=== PATIENT | female | born 1975 | race Caucasian/White ===

== ENCOUNTER 2018-04-09 07:10 | Day surgery (SDC) | payer OTHER ==
[2018-04-09 09:39] LABS: ADD MAN DIFF? NO
[2018-04-09 09:43] LABS: WHITE BLOOD COUNT 9.5 10^3/ul (4.8-10.8)
[2018-04-09 09:43] LABS: BASOPHIL # 0.1 10^3/ul (0.0-0.1); BASOPHILS % 0.8 % (0.0-2.0); EOSINOPHILS # 0.1 10^3/ul (0.0-0.5); EOSINOPHILS % 1.3 % (0.0-7.0); HEMATOCRIT 35.3 % (37.0-47.0); HEMOGLOBIN 11.7 g/dl (12.0-16.0); LYMPHOCYTES # 2.2 10^3/ul (0.8-2.9); LYMPHOCYTES % 23.1 % (15.0-51.0); MEAN CORPUSCULAR HEMOGLOBIN 29.5 pg (29.0-33.0); MEAN CORPUSCULAR HGB CONC 33.1 g/dl (32.0-37.0); MEAN CORPUSCULAR VOLUME 89.1 fl (82.0-101.0); MONOCYTE # 0.6 10^3/ul (0.3-0.9); MONOCYTES % 6.3 % (0.0-11.0); NEUTROPHIL # 6.5 10^3/ul (1.6-7.5); NEUTROPHILS % 68.2 % (39.0-77.0); PLATELET COUNT 389 10^3/UL (140-415); RED BLOOD COUNT 3.96 10^6/ul (4.20-5.40); RED CELL DISTRIBUTION WIDTH 13.2 % (11.5-14.5)
[2018-04-09 10:03] LABS: ALANINE AMINOTRANSFERASE 28 IU/L (13-69); ALBUMIN/GLOBULIN RATIO 1.29; ALKALINE PHOSPHATASE 82 IU/L (42-121); ANION GAP 13 (8-16); ASPARTATE AMINO TRANSFERASE 20 IU/L (15-46); BILIRUBIN,INDIRECT 0.5 mg/dl (0-1.1); BILIRUBIN,TOTAL 0.5 mg/dl (0.2-1.3); CARBON DIOXIDE 29 mmol/L (21-31); CHLORIDE 108 mmol/L (97-110); GLUCOSE 89 mg/dl (70-220); INR 0.93; PROTIME 12.6 Sec (11.9-14.9); TOTAL PROTEIN 7.1 g/dl (6.1-8.1)
[2018-04-09 10:04] LABS: PARTIAL THROMBOPLASTIN TIME 33.4 Sec (25.0-35.0)
[2018-04-09 10:09] LABS: BLOOD UREA NITROGEN 9 mg/dl (7-20); CALCIUM 9.1 mg/dl (8.4-10.2); CREATININE 0.51 mg/dl (0.44-1.00); POTASSIUM 3.6 mmol/L (3.5-5.1); SODIUM 146 mmol/L (135-144)
[2018-04-09] MEDS ORDERED: ROCURONIUM 50 MG INJ (10:31)
[2018-04-09] MEDS ORDERED: NEOSTIGMINE 3 MG/3 ML SYRINGE (10:31)
[2018-04-09] MEDS ORDERED: CEFAZOLIN 1 GM INJ (10:31)
[2018-04-09] MEDS ORDERED: GLYCOPYRROLATE 0.4 MG INJ (10:31)
[2018-04-09] MEDS ORDERED: PROPOFOL 20 ML (10:31)
[2018-04-09] MEDS ORDERED: FENTAnyl 50 MCG/ML VIAL (10:32)
[2018-04-09] MEDS ORDERED: MIDAZOLAM 1 MG/ML 2 ML INJ (10:32)
[2018-04-09] MEDS ORDERED: DEXAMETHASONE 4 MG/ML 1 ML INJ (10:32)
[2018-04-09] MEDS ORDERED: ONDANSETRON 4 MG INJ (10:32)
[2018-04-09] MEDS ORDERED: SUGAMMADEX SODIUM 200 MG/2 ML VIAL IV (11:37)
[2018-04-09] MEDS ORDERED: DIPHENHYDRAMINE 50 MG INJ IV (12:00)
[2018-04-09] MEDS ORDERED: ONDANSETRON 4 MG INJ IV (12:00)
[2018-04-09] MEDS ORDERED: IPRATROPIUM (NEB) 0.5 MG/2.5 ML AMP HHN (12:00)
[2018-04-09] MEDS ORDERED: HYDROmorphONE 1 MG/5 ML IV SYRINGE IV ×2 (12:00)
[2018-04-09] MEDS ORDERED: MIDAZOLAM 1 MG/ML 2 ML INJ IV (12:00)
[2018-04-09] MEDS ORDERED: MEPERIDINE 25 MG INJ IV (12:00)
[2018-04-09] MEDS ORDERED: TRIMETHOBENZAMIDE 100 MG/ML VIAL IM (12:00)
[2018-04-09] MEDS ORDERED: OXYCODONE/ACETAMINOPHEN (5/325) TAB PO ×2 (12:00)
[2018-04-09] MEDS ORDERED: ALBUTEROL 0.083% (NEB) 2.5 MG/3 ML AMP HHN (12:00)
[2018-04-09] MEDS ORDERED: FENTAnyl 50 MCG/ML VIAL IV ×3 (12:00)
[2018-04-09] MEDS ORDERED: EPHEDrine SULFATE 50 MG/5 ML SYG IV (12:00)
[2018-04-09] MEDS: HYDROmorphONE 1 MG/5 ML IV SYRINGE IV (12:10)
[2018-04-09] MEDS: LABETALOL HCL 20MG INJ IV (12:11)
[2018-04-09] MEDS: hydrALAzine 20 MG INJ IV (12:24)
== END 2018-04-09 13:45 | disposition home or self-care (01) ==
LOC: SDS 07:10
DX: N60.22 Fibroadenosis of left breast (principal); I10 Essential (primary) hypertension; E78.5 Hyperlipidemia, unspecified; J45.909 Unspecified asthma, uncomplicated
CPT/HCPCS: 19301; 71045; 80053; 84703; 85025; 85610; 85730; 88309; 93005